=== PATIENT | female | born 1990 | race Two or more races ===

== ENCOUNTER 2024-03-25 23:50 | Emergency (ER) | payer BC, OTHER ==
[2024-03-25 23:57] VITALS: BP 123/76; PULSE 69; RESP 20; TEMP 97.6; BMI 36.3
[2024-03-26] MEDS ORDERED: TETRACAINE 0.5% OPHTH SOLN 2 ML BOTTLE ONE (01:37)
[2024-03-26] MEDS ORDERED: FLUORESCEIN NA 1 EA STRIP ONE (01:38)
[2024-03-26] MEDS: FLUORESCEIN NA 1 EA STRIP OU ONE (01:39)
[2024-03-26] MEDS: TETRACAINE 0.5% HCL 0.6ML DROPPER.BOTTLE OU ONE (01:39)
[2024-03-26] MEDS: OFLOXACIN 0.3% OPHTHALMIC SOLUTION 5 ML BOTTLE OD ONE (02:27)
[2024-03-26] MEDS ORDERED: DIPHTH,PERTUSS(ACELL),TET 0.5 ML DISP.SYRIN IM ONE (03:12)
[2024-03-26] MEDS: DIPHTH,PERTUSS(ACELL),TET 0.5 ML DISP.SYRIN IM ONE (03:15)
== END 2024-03-26 03:15 | disposition home or self-care (01) ==
LOC: JER 23:50
DX: S05.01XA Injury of conjunctiva and corneal abrasion without foreign body, right eye, initial encounter (principal); W22.8XXA Striking against or struck by other objects, initial encounter
CPT/HCPCS: 90715; 99283-25

== ENCOUNTER 2025-02-16 13:49 | Emergency (ER) | payer BC, OTHER ==
[2025-02-16 13:59] VITALS: BP 139/86; PULSE 93; RESP 20; TEMP 98.1; BMI 39.4
[2025-02-16] MEDS: SODIUM CHLORIDE 0.9% 500 ML INFUS.BAG IV ONE (15:20)
[2025-02-16 15:55] LABS: ABSOLUTE IMMATURE GRANULOCYTES 0.13 x10^3/uL (0.0-0.031); BASOPHILS # 0.04 x10^3/uL (0.01-0.08); EOSINOPHIL % 0.5 % (0.7-5.8); EOSINOPHILS # 0.08 x10^3/uL (0.04-0.36); HEMOGLOBIN 14.2 g/dL (11.2-15.7); MCHC 33.8 g/dl (32.2-35.5); MEAN CELL VOLUME 88.1 fl (79.4-94.8); MEAN PLT VOLUME 10.1 fl (9.4-12.3); MONOCYTE # 0.85 x10^3/uL (0.24-0.86); MONOCYTE % 5.8 % (4.7-12.5); PLATELET COUNT 282 x10^3/uL (182-369); RDW 12.1 % (12.1-16.8)
[2025-02-16 15:56] LABS: PH,URINE 6.5 (5.0-8.0); URINE APPEARANCE Error; URINE BILIRUBIN NEGATIVE (NEGATIVE); URINE COLOR YELLOW; URINE GLUCOSE (UA) NEGATIVE (NEGATIVE); URINE KETONE 2+ (NEGATIVE); URINE LEUK ESTERASE NEGATIVE (NEGATIVE); URINE NITRITE NEGATIVE (NEGATIVE); URINE PROTEIN NEGATIVE (NEGATIVE); URINE UROBILINOGEN 0.2 mg/dL (0.2-1.0)
[2025-02-16 16:18] LABS: POTASSIUM 4.1 mmol/L (3.5-5.1)
[2025-02-16 16:20] LABS: ALBUMIN 3.3 g/dl (3.4-5.0); BLOOD UREA NITROGEN 5.2 mg/dL (7-18); CALCIUM 9.7 mg/dL (8.5-10.1)
[2025-02-16 16:23] LABS: CREATININE 0.5 mg/dL (0.55-1.3)
[2025-02-16 16:25] LABS: BILIRUBIN,TOTAL 0.7 mg/dL (0.2-1); TOT PROT 7.2 g/dl (6.4-8.2)
== END 2025-02-16 18:48 | disposition home or self-care (01) ==
LOC: JER 13:49
DX: O20.9 Hemorrhage in early pregnancy, unspecified (principal); Z3A.12 12 weeks gestation of pregnancy
CPT/HCPCS: 36415; 76815-TC; 80053; 81003; 84702; 85025; 86850; 86900; 86901; 87086; 99284-25